=== PATIENT | female | born 1990 | race Caucasian/White ===

== ENCOUNTER 2020-04-11 18:39 | Inpatient (IN) | payer MEDICAID, SELFPAY ==
[2020-04-11 19:00] VITALS: BP 108/73; PULSE 77; RESP 16; TEMP 36.8; O2SAT 99; BMI 30.9
[2020-04-11 19:23] LABS: Basophils Percent Auto 0.1 % (0-2); Eosinophils Absolute Auto 0.1 X10*3/uL (0.0-0.4); Eosinophils Percent Auto 0.6 % (0-4); Hematocrit 36.1 % (37-47); Hemoglobin 12.5 g/dl (12.0-16.0); Imm Gran Abs Auto 0.02 X10*3/uL (0.00-0.03); Imm Gran Pct Auto 0.2 % (0.0-0.4); Lymphocytes Absolute Auto 1.6 X10*3/uL (1.2-4.9); Lymphocytes Percent Auto 16.7 % (20-40); MANUAL DIFF FLAG NO; Mean Corpuscular HGB Conc 34.6 g/dl (31.0-35.0); Mean Corpuscular Hemoglobin 32.2 pg (27.0-33.0); Mean Platelet Volume 10.4 fL (9.4-12.3); Monocytes Absolute Auto 0.6 X10*3/uL (0.1-1.2); Monocytes Percent Auto 6.3 % (2-11); Neutrophils Absolute Auto 7.2 X10*3/uL (2.0-8.3); Neutrophils Percent Auto 76.1 % (45-73); Platelet Count 163 X10*3/uL (160-400); Red Blood Count 3.88 X10*6/uL (4.20-5.50); Red Cell Distribution Width 11.6 % (11.0-16.0); White Blood Count 9.5 X10*3/uL (4.8-10.8)
[2020-04-11 19:25] LABS: Glucose Urine UA NEG (NEG); Leukocyte Esterase Urine NEG (NEG); Nitrite Urine NEG (NEG); PH 5.5 (5.0-8.0); Specific Gravity - Urine >= 1.030 (1.005-1.025); Urine Blood 1+ (NEG); Urine Ketones 15 MG/DL (NEG); Urine Protein NEG (NEG-TRACE)
[2020-04-11 19:38] LABS: Appearance Urine CLEAR; Color Urine YELLOW
[2020-04-11 19:39] LABS: UPreg QC Valid YES; Urine Pregnancy NEGATIVE (NEGATIVE)
[2020-04-11 19:43] LABS: Bacteria Urine 1+ /LPF; Squamous Epithelial Cell Urine TRACE /LPF
[2020-04-11 19:53] LABS: Alanine Aminotransferase 22 U/L (0-31); Albumin Level 4.3 g/dL (3.5-5.0); Alkaline Phosphatase 84 U/L (39-117); Anion Gap 12 (12-20); Aspartate Amino Transferase 23 U/L (5-31); Bilirubin Direct 0.3 mg/dL (0.0-0.5); Bilirubin Total 0.9 mg/dL (0.0-1.0); Blood Urea Nitrogen 16 mg/dL (9-16); Calcium 8.9 mg/dL (8.4-10.2); Carbon Dioxide 26 mmol/L (22-29); Chloride 105 mmol/L (96-108); Estimated Glomerular Filt Rate > 60; Glucose Random 84 mg/dL (60-115); Lipase 20 U/L (8-78); Potassium 4.2 mmol/l (3.3-5.1); Sodium 139 mmol/L (135-145); Total Protein 7.4 g/dL (6.5-8.0)
--- NOTE | 2020-04-11 20:20 | PC.NURSE ---
Pt found sitting upright in bed, CAOx4, speaking full sentences, reporting epigastric pain radiating into RUQ with poor PO, denies N/V/D, fever. IV established. WHITEWASHER at bedside, plan for IVFs, medications and CT.
--- NOTE | 2020-04-11 20:21 | ED.ABDPAIN ---
HPI - Abdominal Pain General Chief Complaint: Abdominal Pain Stated Complaint: abdominal pain Time Seen by Provider: 04/11/20 21:24 Source: patient Mode of arrival: ambulatory Limitations: no limitations History of Present Illness HPI narrative: 29-year-old female with past medical history of cholecystectomy presents with 1 day of abdominal pain. Patient was woken up with this abdominal pain, started in the epigastric area and over to the right upper quadrant to the right lower quadrant. She has not been able to eat very much today and states that the pain was so intense that it caused her to vomit. She has not taken any [id number] medications to help alleviate this pain secondary to nausea. She does not report any fevers, chills, chest pain or pressure, palpitations, edema, dizziness, lightheadedness, travel outside of the country, or any sick contacts. MD elicited complaint: abdominal pain Onset (ago): day(s) (1) Pain Consistency: constant Location: epigastric, RUQ and RLQ Severity: severe Pain scale (0-10): 8 Quality: aching Migration to: no migration Exacerbating factors: vomiting and movement Relieving factors: nothing Associated symptoms: nausea and vomiting Related Data Patient : No Home Medications Medication Instructions Recorded Confirmed No Known Home Meds 04/11/20 04/11/20 Allergies Allergy/AdvReac Type Severity Reaction Status Date / Time No Known Allergies Allergy Verified 04/11/20 19:04 Review of Systems Review of Systems Constitutional: No Fever, No Chills ENT/Mouth: No sore throat Eyes: No Eye Pain, No Swelling, No Redness Cardiovascular: No Chest Pain, No SOB Respiratory: No Cough, No Sputum, No Wheezing Gastrointestinal: positive Nausea, positive Vomiting, No Diarrhea, positive abdominal pain Genitourinary: No Dysuria, no urinary frequency, no Hematuria, no Flank Pain, no hesitancy Musculoskeletal: No joint pain, No Myalgias Skin: No Skin Lesions, No rash Neuro: No Weakness, No Numbness, No Headache Psych: No Anxiety/Panic, No Depression Heme/Lymph: No Bruising, No Lymphadenopathy Endocrine: No Polyuria, No Polydipsia Yes all other systems are reviewed and are negative Physical Exam Vital Signs: Vital Signs: Last Vital Signs Temp 97.7 F 04/11/20 22:00 Pulse 68 04/11/20 23:18 Resp 16 04/11/20 23:18 BP 114/70 04/11/20 23:18 Pulse Ox 99 04/11/20 21:32 Body Mass Index 30.9 Appearance: Alert. Oriented X3. Mild distress. Eyes: Pupils equal, round and reactive to light. ENT: Pharynx normal. Neck: Normal inspection. Neck supple. CVS: Normal heart rate and rhythm. Pulses normal. Respiratory: No respiratory distress. Breath sounds normal. Abdomen: Soft and positive McBurney's, psoas and Rovsing. Negative obturator and Deleon Skin: Skin warm and dry. Normal skin color. Normal skin turgor. Extremities: No lower extremity edema. Neuro: No motor deficit. No sensory deficit. Course Course Course Narrative: 29-year-old female with past medical history of cholecystectomy presents with 1 day of abdominal pain. Lab values are unremarkable however patient has a positive abdominal exam. Will order CT scan of abdomen to rule out acute abdomen. Will resuscitate with fluids, morphine and Zofran. CT scan positive for appendicitis. Discussion with Dr. Bustos, plan is to admit for surgery. Detailed discussion with patient regarding findings, patient agrees to plan of care. Consultations Consultation #1: Akash Time: 21:40 MDM - Abdominal Pain Differential Diagnosis Differential diagnosis: Likely abdominal pain, acute appendicitis, bowel perforation, calculus of kidney, constipation, diverticulitis, gastritis, ovarian cyst and small bowel obstruction Medical Records Attestation: I reviewed the patient's medical records. Lab Data Attestation: I reviewed the patient's lab results. Result diagrams: 04/11/20 19:17 04/11/20 19:17 Labs: Lab Results 04/11/20 04/11/20 04/11/20 Range/Units 19:17 19:17 19:17 WBC 9.5 (4.8-10.8) X10*3/uL RBC 3.88 L (4.20-5.50) X10*6/uL Hgb 12.5 (12.0-16.0) g/dl Hct 36.1 L (37-47) % MCV 93.0 (80-98) fL MCH 32.2 (27.0-33.0) pg MCHC 34.6 (31.0-35.0) g/dl RDW 11.6 (11.0-16.0) % Plt Count 163 (160-400) X10*3/uL MPV 10.4 (9.4-12.3) fL Immature Gran % (Auto) 0.2 (0.0-0.4) % Neut % (Auto) 76.1 H (45-73) % Lymph % (Auto) 16.7 L (20-40) % [place] % (Auto) 6.3 (2-11) % Eos % (Auto) 0.6 (0-4) % Baso % (Auto) 0.1 (0-2) % Lymph # (Auto) 1.6 (1.2-4.9) X10*3/uL [place] # (Auto) 0.6 (0.1-1.2) X10*3/uL Eos # (Auto) 0.1 (0.0-0.4) X10*3/uL Baso # (Auto) 0.0 (0.0-0.2) X10*3/uL Abs Immat Gran (auto) 0.02 (0.00-0.03) X10*3/uL Absolute Neuts (auto) 7.2 (2.0-8.3) X10*3/uL Absolute Nucleated RBC 0.000 (0.0-0.012) X10*3/uL Nucleated RBC % (auto) 0.0 (0.0-0.2) /100WBC Sodium 139 (135-145) mmol/L Potassium 4.2 (3.3-5.1) mmol/l Chloride 105 (96-108) mmol/L Carbon Dioxide 26 (22-29) mmol/L Anion Gap 12 (12-20) BUN 16 (9-16) mg/dL Creatinine 0.82 (0.5-1.4) mg/dL Estim Creat Clear Calc 100.0 Estimated GFR > 60 Random Glucose 84 (60-115) mg/dL Lactic Acid (0.5-2.0) mmol/L Calcium 8.9 (8.4-10.2) mg/dL Total Bilirubin 0.9 (0.0-1.0) mg/dL Direct Bilirubin 0.3 (0.0-0.5) mg/dL AST 23 (5-31) U/L ALT 22 (0-31) U/L Alkaline Phosphatase 84 (39-117) U/L Total Protein 7.4 (6.5-8.0) g/dL Albumin 4.3 (3.5-5.0) g/dL Lipase 20 (8-78) U/L Urine Color YELLOW Urine Appearance CLEAR Urine pH 5.5 (5.0-8.0) Ur Specific [place] >= 1.030 H (1.005-1.025) Urine Protein NEG (NEG-TRACE) MG/DL Urine Glucose (UA) NEG (NEG) MG/DL Urine Ketones 15 (NEG) MG/DL Urine Blood 1+ H (NEG) Urine Nitrite NEG (NEG) Ur Leukocyte Esterase NEG (NEG) Urine RBC 1-4 (0) /HPF Urine WBC 1-4 (0-4) /HPF Ur Squamous Epith Cells TRACE /LPF Urine Bacteria 1+ /LPF Urine Test NEGATIVE (NEGATIVE) 04/11/20 Range/Units 22:00 WBC (4.8-10.8) X10*3/uL RBC (4.20-5.50) X10*6/uL Hgb (12.0-16.0) g/dl Hct (37-47) % MCV (80-98) fL MCH (27.0-33.0) pg MCHC (31.0-35.0) g/dl RDW (11.0-16.0) % Plt Count (160-400) X10*3/uL MPV (9.4-12.3) fL Immature Gran % (Auto) (0.0-0.4) % Neut % (Auto) (45-73) % Lymph % (Auto) (20-40) % [place] % (Auto) (2-11) % Eos % (Auto) (0-4) % Baso % (Auto) (0-2) % Lymph # (Auto) (1.2-4.9) X10*3/uL [place] # (Auto) (0.1-1.2) X10*3/uL Eos # (Auto) (0.0-0.4) X10*3/uL Baso # (Auto) (0.0-0.2) X10*3/uL Abs Immat Gran (auto) (0.00-0.03) X10*3/uL Absolute Neuts (auto) (2.0-8.3) X10*3/uL Absolute Nucleated RBC (0.0-0.012) X10*3/uL Nucleated RBC % (auto) (0.0-0.2) /100WBC Sodium (135-145) mmol/L Potassium (3.3-5.1) mmol/l Chloride (96-108) mmol/L Carbon Dioxide (22-29) mmol/L Anion Gap (12-20) BUN (9-16) mg/dL Creatinine (0.5-1.4) mg/dL Estim Creat Clear Calc Estimated GFR Random Glucose (60-115) mg/dL Lactic Acid 0.7 (0.5-2.0) mmol/L Calcium (8.4-10.2) mg/dL Total Bilirubin (0.0-1.0) mg/dL Direct Bilirubin (0.0-0.5) mg/dL AST (5-31) U/L ALT (0-31) U/L Alkaline Phosphatase (39-117) U/L Total Protein (6.5-8.0) g/dL Albumin (3.5-5.0) g/dL Lipase (8-78) U/L Urine Color Urine Appearance Urine pH (5.0-8.0) Ur Specific [place] (1.005-1.025) Urine Protein (NEG-TRACE) MG/DL Urine Glucose (UA) (NEG) MG/DL Urine Ketones (NEG) MG/DL Urine Blood (NEG) Urine Nitrite (NEG) Ur Leukocyte Esterase (NEG) Urine RBC (0) /HPF Urine WBC (0-4) /HPF Ur Squamous Epith Cells /LPF Urine Bacteria /LPF Urine Test (NEGATIVE) Imaging Data CT scan - abdomen: Attestation: I personally reviewed and interpreted this imaging study as follows: Radiologist's impression: EXAMINATION: CT ABDOMEN AND PELVIS WITH CONTRAST CLINICAL INFORMATION: Right lower quadrant abdominal pain. Cholecystectomy. COMPARISON: None TECHNIQUE: Multidetector volumetric images were obtained from the superior aspect of the liver through the pubic symphysis following administration 85 mL of Omnipaque 350 intravenous contrast. Sagittal and coronal reformatted images were obtained on the technologist's workstation. Oral contrast: No This CT examination was performed using dose optimization techniques as appropriate, variously including the following: *Automated exposure control *Adjustment of mA and/or kV according to patient size (this includes techniques or standardized protocols for targeted exams where dose is matched to indication/reason for exam; i.e. extremities or head) *Use of iterative reconstruction technique DLP: 639 mGy-cm FINDINGS: LUNG BASES: The visualized lung bases are unremarkable. LIVER, GALLBLADDER, AND BILIARY TREE: The liver is normal in size, shape, and attenuation. No focal hepatic lesion or biliary ductal dilatation is present. The gallbladder has been surgically removed. PANCREAS: Unremarkable. SPLEEN: Unremarkable. ADRENAL GLANDS: Unremarkable. KIDNEYS AND URETERS: The kidneys are normal in size, shape, and attenuation. There is 4 nonobstructive radiopaque calculi lower pole calyx left kidney. No additional calculi seen. There is no caliectasis or hydronephrosis. BLADDER: Unremarkable. GASTROINTESTINAL TRACT: There is a 1 cm dilated appendix with 7 mm appendicolith and periappendiceal fat stranding suggestive of acute appendicitis. There is no free air or abscess seen. The small bowel loops are normal caliber. There is scattered stool in the right colon without distention. The stomach is nondistended. ABDOMINAL WALL: No significant hernia is appreciated. LYMPH NODES: Normal. VASCULAR: Unremarkable. PELVIC VISCERA: Unremarkable. OSSEOUS STRUCTURES: Unremarkable. CT/CT abdomen pelvis w con IMPRESSION: Acute appendicitis without perforation. Nonobstructive 4 mm radiopaque calculi left kidney. Critical Care Time Critical Care Time Critical Care Time: Yes Total Critical Care Time: 45 Attestation: I have personally provided critical care time exclusive of time spent on separately billable procedures. Time includes review of laboratory data, radiology results, discussion with consultants, and monitoring for potential decompensation. Interventions were performed as documented. Discharge Plan Discharge Clinical Impression: Kidney calculi Acute appendicitis Qualifiers: Acute appendicitis type: unspecified acute appendicitis type Qualified Code(s): K35.80 - Unspecified acute appendicitis Patient Disposition: Admitted As Inpatient [facility] Past Medical History Attestation statement: The following information was validated with the patient. Medical History (Updated 04/12/20 @ 01:31 by Kathryn Maurer NP) No known health problems Surgical History Hx of cholecystectomy Social History Social History Advance Directives: No Advance Directives Information Provided: No
[2020-04-11] MEDS: 0.9 % Sodium Chloride 1,000 ML 999 ML IVCONT (20:46)
[2020-04-11] MEDS: ondansetron HCL 4 MG/2 ML VIAL IVPUSH (20:47)
[2020-04-11] MEDS: Morphine Sulfate 4 MG/ML CARTRIDGE IVPUSH ×2 (20:47→23:15)
--- NOTE | 2020-04-11 20:47 | PC.NURSE ---
Medicated per Mar with Morphine and Zofan for 5/10 epigastric pain, awiating CT.
--- NOTE | 2020-04-11 20:51 | PC.NURSE ---
Off to CT on hospital bed.
[2020-04-11] MEDS: iohexoL 350 MG/ML 100 ML INFUS..BTL IV (21:02)
--- NOTE | 2020-04-11 21:20 | PC.NURSE ---
Pt returns from CT, reporting some relief of pain after Morphine, awaiting CT results. Continue to monitor.
[2020-04-11 21:32] VITALS: BP 99/64; PULSE 65; RESP 16; TEMP 36.4; O2SAT 99
[2020-04-11 22:00] VITALS: PULSE 16; TEMP 36.5
--- NOTE | 2020-04-11 22:05 | PC.NURSE ---
BCX and lactic obtained and sent. Pt aware of plan to admit for surgery due to acute appendicitis.
--- NOTE | 2020-04-11 22:27 | PC.NURSE ---
Telephone orders taken form Dr Bustos from this RN and scanned to pharmacy.
[2020-04-11 22:30] LABS: Lactic Acid 0.7 mmol/L (0.5-2.0)
--- NOTE | 2020-04-11 22:53 | PC.NURSE ---
DR. GIRARD CALLING TO GIVE TELEPHONE ORDERS TO THE PRIMARY NURSE. INFORMING DR. GIRARD THAT NURSING IS NOT SUPPOSED TO BE PUTTING IN ADMISSION ORDERS BECAUSE THEY NEED THE ADMITTING DRSusanne TO PLACE THE ORDERS DUE TO REGISTRATION AND ORDER ISSUES WITHIN THE COMPUTER SYSTEM. MULTIPLE CALLS TO THE NURSING CENTRAL STERILE TECH STEPHANIE AND TO DR. GIRARD. STEPHANIE CENTRAL STERILE TECH CALLING THE AOD MANDARIN TUTOR SATHYA WHO SUGGESTED A HOSPITALIST ADMISSION IF DR. GIRARD WAS UNABLE TO PLACE ORDERS FROM HOME. DR. GIRARD DID NOT WANT TO DO THAT AT THIS TIME. CENTRAL STERILE TECH RECOMMENDING TAKING THE TELEPHONE ORDERS AT THIS TIME AND HAVING DR. GIRARD SIGN THE ORDERS IN THE AM. PRIMARY NURSE AND THIS RN TAKING PHONE ORDERS FROM DR. GIRARD. THIS NURSE PLACING ORDERS IN COMPUTER, PATIENT UNABLE TO HAVE COMPLETED ADMISSION ORDERS IN THE COMPUTER FOR TRANSFER DUE TO THE FACT THAT IT HAS NO ADMITTING DOCTOR AND THE ORDERS ARE UNDER THIS RN'S NAME. STATING MULTIPLE TIMES TO CENTRAL STERILE TECH AND DR. GIRARD THAT THIS RN WAS UNCOMFORTABLE WITH THE SITUATION.
[2020-04-11 23:18] VITALS: BP 114/70; PULSE 68; RESP 16
--- NOTE | 2020-04-11 23:24 | PC.NURSE ---
Pt medicated with Morphine per request for 6/10 pain to right side of abdomen. VSS. Pt provided with a pillow, lights dim for comfort. This RN faxing admission orders to night pharmacy multiple times, night pharmacy not receiving orders. Continue to monitor.
[2020-04-12] VITALS (11 sets, daily range): BP systolic 100–122; BP diastolic 44–77; PULSE 60–100; RESP 15–20; TEMP 35.7–36.7; O2SAT 96–99
[2020-04-12] MEDS: Lactated Ringers 1,000 ML 100 ML IVCONT ×2 (00:24→07:52)
--- NOTE | 2020-04-12 00:30 | PC.NURSE ---
Pt found sleeping in bed, LR infusing per MAR @ 100/hr. Pt reports minimal pain at present time. Call walls within reach, continue to monitor.
--- NOTE | 2020-04-12 03:00 | PC.NURSE ---
Pt found resting in bed, reports no pain at this time, IVF infusing per MAR. Call walls within reach, continue to monitor.
[2020-04-12] MEDS: ondansetron HCL 4 MG/2 ML VIAL IVPUSH (04:02)
--- NOTE | 2020-04-12 04:06 | PC.NURSE ---
Pt calling this RN into room, requesting to use the bathroom. Pt ambulating to the bathroom with a hall/steady gait. Pt reporting nausea followed by 1 episode of vomiting. Pt medicated with Zofran for N/V. Pt reports relief of pain after vomiting. Covid swab obtained and sent. IVF infusing, continue to monitor.
[2020-04-12 04:25] LABS: COVID-19 Test Negative (Negative)
--- NOTE | 2020-04-12 05:31 | PC.NURSE ---
This RN calling med/surg to give a nurse to nurse as pt was noted to have a room on the tracker. Per staff, pt is unable to come up until later as they are full.
--- NOTE | 2020-04-12 06:49 | PC.NURSE ---
Report given to M/S RN. Pt awaiting transport to floor.
--- NOTE | 2020-04-12 07:23 | PM.HPGS ---
History of Present Illness History of Present Illness Date of Service: 04/12/20 Chief complaint: ACUTE APPENDICITIS Narrative: Smiley Plascencia is a 29 year old female with no medical problems, admitted last night for abdominal pain. She states she started to have abdominal pain at about 11 a.m. yesterday. This was initially on the epigastric area but migrated to the RLQ the rest of the day. The pain persisted so she cam to the ED last night. She had one episode of N/V. She denies diarrhea or constipation. Her CT was c/w acute appendicitis. She had a lap cholecystectomy last year in [place] which was uneventful. Review of Systems Constitutional: Constitutional: Denies chills and Denies fever(s) Cardiovascular: Cardiovascular: Denies chest pain, Denies dyspnea and Denies dyspnea on exertion Respiratory: Respiratory: Denies cough, Denies dyspnea and Denies dyspnea on exertion Gastrointestinal: Gastrointestinal: Denies hematochezia, Denies change in bowel habits and Reports nausea Genitourinary: Genitourinary: Denies hematuria Musculoskeletal: Musculoskeletal: Denies back pain and Denies limited range of motion Neurologic: Denies focal weakness and Denies convulsions Psychiatric: Psychiatric: Denies depression and Denies mood swings PMFSH Past Medical History Medical History No known health problems Surgical History Surgical History Hx of cholecystectomy Social History Social History Household Members: Children Housing: Apartment Do you presently have visiting nurse or other home services: No Smoking Status: Never smoker Use of substances other than those prescribed or required for medical reasons: No Have you been hit, kicked, punched, or otherwise hurt by someone within the past year? If so, by whom?: No Do you feel safe in your current relationship?: Yes Is there a partner from a previous relationship who is making you feel unsafe now?: No Are you made to feel afraid or neglected: No Advance Directives: No Advance Directives Information Provided: No Do you have thoughts of harming others: None Do you have a plan to hurt others: No Plan Recently lost weight without trying: No Meds Allergies Allergy/AdvReac Type Severity Reaction Status Date / Time No Known Allergies Allergy Verified 04/11/20 19:04 Home Medications Medication Instructions Recorded Confirmed Type No Known Home Meds 04/11/20 04/11/20 History Physical Exam Vital Signs: Vital Signs: Last Vital Signs Temp 97.7 F 04/11/20 22:00 Pulse 60 04/12/20 01:36 Resp 20 04/12/20 04:30 BP 107/52 L 04/12/20 01:36 Pulse Ox 98 04/12/20 01:36 Body Mass Index 30.9 Const: General: comfortable and no acute distress Orientation/consciousness: patient oriented x3 Neck: Neck: Yes no lymphadenopathy Resp: Auscultation: clear to auscultation bilaterally Cardio: Rhythm: regular rhythm GI: Palpation (GI): Soft to palpation, Tenderness to palpation present (GI) (RLQ), no guarding and not rigid Neuro: General: patient oriented x3 Results Results Labs: Short CBC 04/11/20 Range/Units 19:17 WBC 9.5 (4.8-10.8) X10*3/uL Hgb 12.5 (12.0-16.0) g/dl Hct 36.1 L (37-47) % Plt Count 163 (160-400) X10*3/uL BMP 04/11/20 19:17 Sodium 139 Potassium 4.2 Chloride 105 Carbon Dioxide 26 BUN 16 Creatinine 0.82 Calcium 8.9 Liver Function 04/11/20 Range/Units 19:17 Total Bilirubin 0.9 (0.0-1.0) mg/dL Direct Bilirubin 0.3 (0.0-0.5) mg/dL AST 23 (5-31) U/L ALT 22 (0-31) U/L Alkaline Phosphatase 84 (39-117) U/L Albumin 4.3 (3.5-5.0) g/dL Urine 04/11/20 Range/Units 19:17 Urine Color YELLOW Urine Appearance CLEAR Urine pH 5.5 (5.0-8.0) Ur Specific [place] >= 1.030 H (1.005-1.025) Urine Protein NEG (NEG-TRACE) MG/DL Urine Glucose (UA) NEG (NEG) MG/DL Urine Test NEGATIVE (NEGATIVE) Abdomen CT scan report/results: report reviewed and image reviewed CT scan - pelvis: report reviewed and image reviewed Assessment and Plan (1) Acute appendicitis: Qualifiers: Acute appendicitis type: unspecified acute appendicitis type Qualified Code(s): K35.80 - Unspecified acute appendicitis Status: Acute Her CT shows a mildly dilated appendix with surrounding fat stranding distally with a fecalith c/w acute appendicitis. I explained to her the option of proceeding with appendectomy. I discussed the technique of lap appy, possible open. I reviewed the risks including but not limited to bleeding, infections, injury to bowel, urinary tract,, as well as the benefits and alternatives. She wants to proceed. She understands the option of IV abx tx. I have reviewed her CT images with the radiologist.
--- NOTE | 2020-04-12 08:50 | MHC.SHP ---
Pre-Procedural Eval Section B Chief Complaint: ACUTE APPENDICITIS Allergies: Allergies Allergy/AdvReac Type Severity Reaction Status Date / Time No Known Allergies Allergy Verified 04/11/20 19:04 Plan I have reviewed the history and physical and performed a pertinent physical examination on my patient. No changes have occurred unless specified.
[2020-04-12] MEDS: Lactated Ringers 1,000 ML 50 ML IVCONT (09:07)
--- NOTE | 2020-04-12 09:38 | P.CONAN_ITS ---
[facility] Past Medical History Medical History No known health problems Surgical History Surgical History Hx of cholecystectomy Social History Social History Household Members: Children Housing: Apartment Do you presently have visiting nurse or other home services: No Smoking Status: Never smoker Use of substances other than those prescribed or required for medical reasons: No Have you been hit, kicked, punched, or otherwise hurt by someone within the past year? If so, by whom?: No Do you feel safe in your current relationship?: Yes Is there a partner from a previous relationship who is making you feel unsafe now?: No Are you made to feel afraid or neglected: No Advance Directives: No Advance Directives Information Provided: No Do you have thoughts of harming others: None Do you have a plan to hurt others: No Plan Recently lost weight without trying: No Meds Allergies Allergy/AdvReac Type Severity Reaction Status Date / Time No Known Allergies Allergy Verified 04/11/20 19:04 Home Medications Medication Instructions Recorded Confirmed Type No Known Home Meds 04/11/20 04/11/20 History Exam Exam Date and Time: April 12, 2020 0938 Height,Weight and Vital Signs: Height 5 ft 3 in Weight 79.379 kg Last Vital Signs Temp 98.0 F 04/12/20 08:46 Pulse 86 04/12/20 08:46 Resp 16 04/12/20 08:46 BP 122/77 04/12/20 08:46 Pulse Ox 98 04/12/20 08:46 Pertinent Lab Results Pertinent Lab Results: Laboratory Tests 04/11/20 04/11/20 04/11/20 19:17 19:17 19:17 WBC 9.5 RBC 3.88 L Hgb 12.5 Hct 36.1 L MCV 93.0 MCH 32.2 MCHC 34.6 RDW 11.6 Plt Count 163 MPV 10.4 Immature Gran % (Auto) 0.2 Neut % (Auto) 76.1 H Lymph % (Auto) 16.7 L [place] % (Auto) 6.3 Eos % (Auto) 0.6 Baso % (Auto) 0.1 Lymph # (Auto) 1.6 [place] # (Auto) 0.6 Eos # (Auto) 0.1 Baso # (Auto) 0.0 Abs Immat Gran (auto) 0.02 Absolute Neuts (auto) 7.2 Absolute Nucleated RBC 0.000 Nucleated RBC % (auto) 0.0 Sodium 139 Potassium 4.2 Chloride 105 Carbon Dioxide 26 Anion Gap 12 BUN 16 Creatinine 0.82 Estim Creat Clear Calc 100.0 Estimated GFR > 60 Random Glucose 84 Lactic Acid Calcium 8.9 Total Bilirubin 0.9 Direct Bilirubin 0.3 AST 23 ALT 22 Alkaline Phosphatase 84 Total Protein 7.4 Albumin 4.3 Lipase 20 Urine Color YELLOW Urine Appearance CLEAR Urine pH 5.5 Ur Specific [place] >= 1.030 H Urine Protein NEG Urine Glucose (UA) NEG Urine Ketones 15 Urine Blood 1+ H Urine Nitrite NEG Ur Leukocyte Esterase NEG Urine RBC 1-4 Urine WBC 1-4 Ur Squamous Epith Cells TRACE Urine Bacteria 1+ Urine Test NEGATIVE COVID-19 (AMIRAH) COVID-[employer]SI [employer] 04/11/20 04/12/20 22:00 03:59 WBC RBC Hgb Hct MCV MCH MCHC RDW Plt Count MPV Immature Gran % (Auto) Neut % (Auto) Lymph % (Auto) [place] % (Auto) Eos % (Auto) Baso % (Auto) Lymph # (Auto) [place] # (Auto) Eos # (Auto) Baso # (Auto) Abs Immat Gran (auto) Absolute Neuts (auto) Absolute Nucleated RBC Nucleated RBC % (auto) Sodium Potassium Chloride Carbon Dioxide Anion Gap BUN Creatinine Estim Creat Clear Calc Estimated GFR Random Glucose Lactic Acid 0.7 Calcium Total Bilirubin Direct Bilirubin AST ALT Alkaline Phosphatase Total Protein Albumin Lipase Urine Color Urine Appearance Urine pH Ur Specific [place] Urine Protein Urine Glucose (UA) Urine Ketones Urine Blood Urine Nitrite Ur Leukocyte Esterase Urine RBC Urine WBC Ur Squamous Epith Cells Urine Bacteria Urine Test COVID-19 (AMIRAH) Negative COVID-19 [employer] See Note Airway Mallampati Class: II TM Dist: >3cm Neck ROM: Full Loose/Missing/Broken Teeth: No Heart: [id number] Lungs: cta b/l Assessment and Plan Assessment Anesthesia Assessment: Anesthesia Plan Discussed and Chart Reviewed Final Anesthetic Review NPO: Yes ASA Class: II and Emergency Final Preanesthetic Review: No Changes in Pt Med Stat, Meds/Allgs Chart Reviewed, Consent Obtained/Reviewed and Anes Risks/Benef Reviewed Patient Risk: Low Procedure Risk: Low Assessment/Block/Sedation in SS: Assess/Block/Sedation-SS Anesthetic Plan Anesthetic Plan: GA and Agree w/ Assess. and Plan Disposition: Standard PACU
--- NOTE | 2020-04-12 10:23 | PM.OP ---
Brief Operative Note Date of Service: 04/12/20 <HI Rader Last Filed: 04/12/20 10:24> Pre-op diagnosis: acute appendicitis <HI Rader Last Filed: 04/12/20 10:24> Post-op diagnosis: same (mesenteric abscess) <HI Rader Last Filed: 04/12/20 10:24> Procedure: laparoscopic appendectomy <HI Rader Last Filed: 04/12/20 10:24> Implants: None <HI Rader Last Filed: 04/12/20 10:24> Surgeon: XOCHILT GIRARD MD <HI Rader Last Filed: 04/12/20 10:24> Anesthesia: GETA <HI Rader Last Filed: 04/12/20 10:24> Precipitator Supervisor: Mckenzie Hutchinson <HI Rader Last Filed: 04/12/20 10:24> Estimated blood loss (mL): 10 <HI Rader Last Filed: 04/12/20 10:24> Urine output (mL): 170 <HI Rader Last Filed: 04/12/20 10:24> Pathology: other (appendix; mesenteric abscess) <HI Rader Last Filed: 04/12/20 10:24> Condition: stable <HI Rader Last Filed: 04/12/20 10:24> Disposition: PACU <HI Rader Last Filed: 04/12/20 10:24>
--- NOTE | 2020-04-12 13:09 | PM.DS ---
DS: Providers Provider Date of Service: 04/12/20 Date of admission: 04/11/20 22:28 Primary care physician: Unknown Physician DS: Diagnosis Discharge Diagnosis (1) Acute appendicitis: Status: Acute (2) S/P laparoscopic appendectomy: Status: Acute DS: Medications Discharge Medications Home Medications: Previous Rx's Medication Instructions Recorded amoxicillin-pot clavulanate 1 tab PO BID #14 tab 04/12/20 [Augmentin] ibuprofen 600 mg PO Q6H PRN #30 tab 04/12/20 oxycodone-acetaminophen [Percocet] 1 - 2 tab PO Q4-6H PRN #30 tab 04/12/20 DS: Summary Hospital Course Hospital Course: BRIEF HPI: Smiley Plascencia is a 29 year old female with no medical problems, admitted for abdominal pain. She states she started to have abdominal pain at about 11 a.m. yesterday. This was initially in the epigastric area but migrated to the RLQ. The pain persisted so she came to the ED last night. She had one episode of N/V. She denies diarrhea or constipation. Her CT was c/w acute appendicitis. She had a lap cholecystectomy last year in [place] which was uneventful. HOSPITAL COURSE: The patient was admitted to the surgical service. She was made NPO, IVF and pain medications as needed were continued. Treatment options were discussed with the patient including appendectomy versus antibiotics and observation. She wanted to proceed with surgery. She was added onto the OR schedule for that day. On 04/12/20, a laparoscopic appendectomy was performed by Dr. Dequan Bustos without complication. A mesenteric abscess was found intraoperatively. The patient tolerated the procedure well. She was admitted for observation on the medical/surgical floor. She was assessed later that day and she felt well with good pain control and tolerating a solid diet. She was discharged to home on 04/12/20 in stable condition. She was discharged on a PO course of Augmentin given the mesenteric abscess. She is to follow up with Dr. Bustos in the office in 2 weeks. Status at Discharge Functional status at discharge: independent ambulation Overall status at discharge: patient is progressing back to baseline Time Spent with Patient Time attestation: Total time spent providing and/or coordinating discharge services: Discharge coordination time: Less than 30 minutes Physical Exam Vital Signs: Vital Signs: Last Vital Signs Temp 97.4 F 04/12/20 10:34 Pulse 75 04/12/20 10:49 Resp 16 04/12/20 10:49 BP 101/50 L 04/12/20 10:49 Pulse Ox 97 04/12/20 10:49 Body Mass Index 30.9 Const: General: cooperative, comfortable, no acute distress and alert Orientation/consciousness: patient oriented x3 Resp: Effort & Inspection: normal respiratory effort Cardio: Rate: regular rate GI: Inspection: Yes incision (dressings intact) Palpation (GI): Soft to palpation, not firm, Tenderness to palpation present (GI) (mild incisional) and no guarding Skin: General skin exam: no rashes or lesions noted Neuro: General: patient oriented x3 DS: Data Data Completed and Pending Pending studies at discharge: Pending at discharge 04/12/20 10:17 Surgical [PTH] Routine Labs on day of discharge: Laboratory Tests 04/11/20 04/11/20 04/11/20 19:17 19:17 19:17 WBC 9.5 RBC 3.88 L Hgb 12.5 Hct 36.1 L MCV 93.0 MCH 32.2 MCHC 34.6 RDW 11.6 Plt Count 163 MPV 10.4 Immature Gran % (Auto) 0.2 Neut % (Auto) 76.1 H Lymph % (Auto) 16.7 L [place] % (Auto) 6.3 Eos % (Auto) 0.6 Baso % (Auto) 0.1 Lymph # (Auto) 1.6 [place] # (Auto) 0.6 Eos # (Auto) 0.1 Baso # (Auto) 0.0 Abs Immat Gran (auto) 0.02 Absolute Neuts (auto) 7.2 Absolute Nucleated RBC 0.000 Nucleated RBC % (auto) 0.0 Sodium 139 Potassium 4.2 Chloride 105 Carbon Dioxide 26 Anion Gap 12 BUN 16 Creatinine 0.82 Estim Creat Clear Calc 100.0 Estimated GFR > 60 Random Glucose 84 Lactic Acid Calcium 8.9 Total Bilirubin 0.9 Direct Bilirubin 0.3 AST 23 ALT 22 Alkaline Phosphatase 84 Total Protein 7.4 Albumin 4.3 Lipase 20 Urine Color YELLOW Urine Appearance CLEAR Urine pH 5.5 Ur Specific [place] >= 1.030 H Urine Protein NEG Urine Glucose (UA) NEG Urine Ketones 15 Urine Blood 1+ H Urine Nitrite NEG Ur Leukocyte Esterase NEG Urine RBC 1-4 Urine WBC 1-4 Ur Squamous Epith Cells TRACE Urine Bacteria 1+ Urine Test NEGATIVE COVID-19 ([facility]) COVID-19 Clin Com 04/11/20 04/12/20 22:00 03:59 WBC RBC Hgb Hct MCV MCH MCHC RDW Plt Count MPV Immature Gran % (Auto) Neut % (Auto) Lymph % (Auto) [place] % (Auto) Eos % (Auto) Baso % (Auto) Lymph # (Auto) [place] # (Auto) Eos # (Auto) Baso # (Auto) Abs Immat Gran (auto) Absolute Neuts (auto) Absolute Nucleated RBC Nucleated RBC % (auto) Sodium Potassium Chloride Carbon Dioxide Anion Gap BUN Creatinine Estim Creat Clear Calc Estimated GFR Random Glucose Lactic Acid 0.7 Calcium Total Bilirubin Direct Bilirubin AST ALT Alkaline Phosphatase Total Protein Albumin Lipase Urine Color Urine Appearance Urine pH Ur Specific [place] Urine Protein Urine Glucose (UA) Urine Ketones Urine Blood Urine Nitrite Ur Leukocyte Esterase Urine RBC Urine WBC Ur Squamous Epith Cells Urine Bacteria Urine Test COVID-19 ([facility]IRAH) Negative COVID-19 Clin Com See Note Discharge Plan Discharge Patient Disposition: Home, Self-Care Referrals: Dequan Bustos MD [Physician] - 2 Weeks Physician,Unknown [Primary Care Provider] - Discharge Medications: New ibuprofen 600 mg tablet 600 mg PO Q6H PRN (Reason: pain) Qty: 30 RF: 0 oxycodone-acetaminophen [Percocet] 5-325 mg tablet 1 - 2 tab PO Q4-6H PRN (Reason: pain) Qty: 30 RF: 0 amoxicillin-pot clavulanate [Augmentin] 875-125 mg tablet 1 tab PO BID Qty: 14 RF: 0 Discharge Orders: Discharge Order (Routine); Ordered 04/12/20 Ordered By: Dequan Bustos Diet: regular diet Activity on Discharge: No heavy lifting Patient Instructions: Laparoscopic Appendectomy (DC) Stand Alone Forms: Patient Portal Discharge page Activity Restrictions/Additional Instructions: If the incision area is tender, you may apply an ice pack for short intervals (No more than 20 minutes on, followed by at least 20 minutes off). Do not apply heat. Do not use creams, lotions, or topical antibiotics unless instructed to do so by your surgeon. These can cause infection or allergic reaction. Ok to shower 24 hours after your surgery. Remove bandaids in 2 days and replace. You have steri strips (small white cloth strips) covering your incision- these will fall off ~1 week. Call Your Doctor If: -Your temperature exceeds 101.5? F -You experience excessive pain or swelling -You have an unexpected reaction to medication -You have excessive bleeding -You experience continued vomiting/nausea -Your incision begins to separate -Your incision shows signs of infection such as increased redness, swelling, excessive pain, drainage (light blood or clear fluid is normal) or heat Visit Report Forms: Patient Portal Discharge page Care Plan Goals: Return to baseline health and activity following recovery period. Health Concerns: Acute appendicitis with mesenteric abscess s/p lap appy Plan of Treatment: S/p lap appy, f/u in office in 2 weeks, PO abx
--- NOTE | 2020-04-12 13:23 | MHC.CM.PN ---
pt dcd prior to being seen by cm
--- NOTE | 2020-04-12 13:50 | OP_ITS ---
SURGEON: Dequan Bustos MD INDICATIONS: The patient is a 29-year-old female, who was admitted last night because of right lower quadrant pain with CAT scan showing significant appendicial stranding, dilated appendix with a fecalith consistent with acute appendicitis. She wanted to proceed with appendectomy. She understood technique of laparoscopic appendectomy with possible open. She was aware of the risks, benefits, and alternatives. PREOPERATIVE DIAGNOSIS: Acute appendicitis. POSTOPERATIVE DIAGNOSIS: Acute appendicitis with mesenteric abscess PROCEDURE PERFORMED: Laparoscopic appendectomy. ESTIMATED BLOOD LOSS: COMPLICATIONS: ANESTHESIA: ASSISTANTS: Mckenzie Hutchinson PA-C. SPECIMENS: POSTOPERATIVE DIAGNOSES: Acute appendicitis, with small mesenteric abscess on the mesoappendix. DESCRIPTION OF PROCEDURE: She was brought to the operating room, placed in supine position under general anesthesia via endotracheal tube. A Rosas catheter was inserted. The abdomen was prepped and draped in usual sterile fashion. The surgical time-out was done. The patient received Cefotan 2 g IV preoperatively. I made a small infraumbilical incision on the skin using blade #15, it was carried down to full-thickness skin and subcutaneous fat down to the fascia. The fascia was incised. The peritoneum was entered and through this incision, a Galo port was introduced. Pneumoperitoneum was introduced to a pressure of 15 mmHg. From here on, the rest of the procedure was done under vision with a 10 mm flat laparoscope. With laparoscopic visualization, I inserted 5 mm port in the left lower quadrant as well as in the suprapubic margin. The patient was placed in head-down and [id number] position. Graspers were placed through the working ports. We proceeded to inspect the right lower quadrant. The cecum was seen easily and the appendix was also visualized. The appendix was very tortuous and markedly inflamed at the distal half with significant induration and inflammation and thickening. I applied a grasper at the mid part of the appendix to put this on stretch. I did blunt dissection of the mesoappendix at the base using [place] dissector. I then switched to a 5 mm scope through the left lower quadrant port. I used an Endo-FLO 30 mm stapler through the Galo port and this was positioned across the base of the appendix. This was fired and the appendix was completely transected. I then proceeded to use the 10 mm scope again on the umbilical port and proceeded to dissect the mesoappendix using the [place] LigaSure. This was done by retracting the appendix anteriorly toward the abdominal wall and putting the mesoappendix on stretch. We divided across the appendix using the LigaSure until it was completely divided. Proximal to the mesentery that was divided, we had noticed a small abscess cavity with drainage of pus as we divided this with the LigaSure. I retrieved the appendix using an Endobag through umbilical incision. I reinserted all ports and insufflated. We switched back to a 10 mm camera again and examined the mesoappendix. Since there was note of small mesenteric abscess with pus, I decided to resect this remaining mesoappendix using the LigaSure. We divided around this with good care being taken to make sure we were avoiding bowel. The small part of the mesoappendix with abscess cavity and induration was resected completely and was retrieved again through an Endobag through the umbilical incision. We re-inserted all ports and insufflated. I copiously irrigated the area around the dissection in view of the presence of pus. We then suctioned the irrigant fluid. There was note of good hemostasis. The staple line appeared intact. We examined all four quadrants. There was no other pathology. There were no signs of any bowel injury. Again, once hemostasis ensured, proceeded to therefore desufflate the port sites. I removed all ports under vision with the laparoscope. I closed the fascia of the umbilical incision with [id number] Dexon 0 stitch. Skin closure was achieved in all incisions using Dexon 4-0 subcuticular running sutures. I copiously irrigated the umbilical incision because of the presence of pus earlier within the specimen. After closure of all skin incision, infiltrated all incisions with Marcaine 0.5% for postop analgesia. Band-Aids were applied. The patient tolerated the procedure well. There were no complications noted. Initial and final counts of sponges and instruments were correct. Estimated blood loss was about 5 mL. The patient was extubated without difficulty and transferred to recovery room with stable vital signs. MD JUAN JOSE Mcgregor/BAIRON / [id number] MTDIsak
--- NOTE | 2020-04-12 13:53 | PM.EVENT ---
Event Note Date of Service: 04/12/20 Event Note: Seen on afternoon rounds She underwent for laparoscopic appendectomy earlier today Looks well Good pain control Tolerating oral intake Abdomen soft Stable vital signs Patient says she wants to be discharged today - states she feels ready Will DC home on p.o. antibiotics in view of small mesenteric abscess Follow-up in the office Discharge instructions given
--- NOTE | 2020-04-12 14:38 | PC.NURSE ---
PT POSTOP, VOIDING WITHOUT DIFFICULTY IN BR. OOB WITH STEADY GAIT. TOLERATED LUNCH WITHOUT N/V. DENIES PAIN. 3 BANDAID DRESSING TO MIDLINE INTACT. SMALL AMOUNT STAINING.
== END 2020-04-12 15:55 | disposition home or self-care (01) | DRG 340 ==
LOC: HO.ED 04-12 02:19 → HO.S3 04-12 05:13
PROVIDERS: Nurse Practitioner Family; Admitting Provider Surgery; Emergency Provider Emergency Medicine Emergency Medical Services; Visit Provider Surgery
PROC: 0DTJ4ZZ Resection of Appendix, Percutaneous Endoscopic Approach (ICD-10-PCS; CPT 44970; principal; 2020-04-12 09:10)
DX: K35.33 Acute appendicitis with perforation, localized peritonitis, and gangrene, with abscess (principal); Z20.822 Contact with and (suspected) exposure to COVID-19
CPT/HCPCS: 36415; 74177; 80048; 80076; 81001; 81025; 83605; 83690; 85025; 87040; 87635; 88304; 96361; 96374; 96375; 96376; 99285; 99291; J0131; J0330; J1100; J1885; J2250; J2270; J2405; J3010; Q9967

== ENCOUNTER → 2020-04-26 08:58 | Outpatient (BNVA) | payer OTHER, SELFPAY | PROVIDERS: Visit Provider Surgery ==

== ENCOUNTER 2023-07-26 13:50 | Outpatient (AMB) | payer OTHER, SELFPAY ==
[2023-07-26 13:51] VITALS: BP 120/70; PULSE 93; TEMP 36.3; O2SAT 97; BMI 33.3
--- NOTE | 2023-07-26 13:51 | AM.OFFWIN_ITS ---
Intake Vital Signs 07/26/23 13:51 Height 5 ft 3 in Weight 188 lb BMI 33.3 BP 120/70 Blood Pressure Location Lt brachial Position Sitting Pulse 93 Pulse Source Pulse Oximeter Temp 97.4 F Temp Source Temporal Artery Scan Pulse Oximetry (%) 97 Oxygen Delivery Method Room Air Intake Visit Reasons: [employer] chest rash cough ears pain Intake Note: pt is here today for chest rash cough ears pain started 3 weeks ago Patient Tobacco Use Status: Never used Tobacco Allergies Penicillins Allergy (Severe, Verified 07/26/23 13:55) Unknown Do you need a note to return to daycare/school/sports/work: Yes HPI HPI Comments History of Present Illness Details This is a 32-year-old female 3 months who presents to the urgent care for evaluation of a rash across her chest. She states that it started bothering her last night when she slept and she noticed it this morning when she awoke. Patient reports that she has been suffering with seasonal allergies and taking Robitussin [id number]. Patient reports that the rash is itchy. She also states that last night she went to a concert and for the T- shirt that she immediately put on the tucked her skin though she did not get a rash anywhere else except the chest. [facility] Medical History No known health problems Surgical History Hx of cholecystectomy Social History Household Members: Children Housing: Apartment Do you presently have visiting nurse or other home services: No Patient Tobacco Use Status: Never used Tobacco Review of Systems Eyes Reports no additional complaints ENT Reports Normal hearing present and Denies dysphagia Card Denies dyspnea and Denies slow heart rate Resp Denies cough and Denies dyspnea GI Denies dysphagia and Denies heartburn Denies dysuria Musc Denies tingling Skin/Breast Reports lesions, Denies skin ulcer and Denies unusual bruising Neuro Reports Normal hearing present, Denies Sensory deficit (Neuro), Denies tingling and Denies paresthesias Physical Exam Vital Signs: Last Vital Signs Temp 97.4 F 07/26/23 13:51 Pulse 93 05/09/24 13:51 BP 120/70 07/26/23 13:51 Pulse Ox 97 07/26/23 13:51 Oxygen Delivery Method Room Air 07/26/23 13:51 BMI result Body Mass Index 33.3 Const General: healthy appearing and no acute distress Resp Effort & Inspection: normal respiratory effort and able to speak in complete sentences Skin Other: Anterior chest: Fine maculopapular rash noted. Neuro Cranial nerves: Yes Normal hearing present Sensory Exam: No Sensory deficit (Neuro) Assessment & Plan Assessment & Plan (1) Rash and nonspecific skin eruption: Code(s): R21 - Rash and other nonspecific skin eruption Plan: Etiology of rash unclear though seemingly rather mild. Will recommend topical Benadryl versus hydrocortisone cream [id number]. Additionally reviewed with patient medications acceptable during such as p.o. Benadryl and Claritin sparingly. Patient agreeable and understands. We will reach out for further instructions from OBGYN. Coding Level of Care Code Est Pt Level 3 (47308) Diagnoses Rash and nonspecific skin eruption R21
== END 2023-07-26 14:15 | disposition home or self-care (01) ==
PROVIDERS: Visit Provider Emergency Medicine
DX: R21 Rash and other nonspecific skin eruption (principal)
CPT/HCPCS: 99213